=== PATIENT | male | born 1980 | race Two or more races ===

== ENCOUNTER 2019-02-10 10:20 | Emergency (ER) | payer SELFPAY ==
[~2019-02-10] VITALS: Ht 170.2 cm; Wt 117.9 kg
[~2019-02-10 10:20] MED LIST: LISI-334 PO; METF500T16 PO
[2019-02-10] MEDS ORDERED: fentaNYL PF VIAL 100 MCG/2 ML VIAL IV ONE (10:45)
--- NOTE | 2019-02-10 11:11 | RAD ---
Examination: KNEE LEFT 3V History: Pain. Possible sepsis. Comparison/Correlation: None Findings: Total 3 images of the left knee were obtained. Joint spaces are unremarkable. No fracture or bony destruction. No definite joint effusion. Bony mineralization is adequate. No degenerative change. Impression: Normal left knee x-ray exam. Electronically signed by: Ahmet Cee MD (02/10/2019 11:08 AM) [facility]
[2019-02-10 11:28] LABS: BASO # 0.1 x10^3/uL (0.0-0.2); BASO % 1 % (0-3); EOS # 0.1 x10^3/uL (0.0-0.7); EOS % 1 % (0-3); HEMATOCRIT 39.8 % (39.0-53.0); HEMOGLOBIN 13.7 g/dL (13.0-17.5); LYMPH # 2.5 x10^3/uL (1.0-4.8); LYMPH % 33 % (24-48); MEAN CORPUSCULAR HEMOGLOBIN 30 pg (25-35); MEAN CORPUSCULAR HGB CONC 34 g/dL (31-37); MEAN CORPUSCULAR VOLUME 88 fL (79-100); MONO # 0.4 x10^3/uL (0.0-1.1); MONO % 6 % (0-9); NEUT # 4.5 x10^3/uL (1.8-7.7); NEUT % 59 % (31-73); PLATELET COUNT 247 x10^3/uL (140-400); RED BLOOD COUNT 4.51 x10^6/uL (4.30-5.70); WHITE BLOOD COUNT 7.6 x10^3/uL (4.0-11.0)
[2019-02-10 11:40] LABS: CALCIUM 8.8 mg/dL (8.5-10.1); CREATININE 0.7 mg/dL (0.7-1.3); GFR 124.9; POTASSIUM 3.8 mmol/L (3.5-5.1)
[2019-02-10 11:46] LABS: ALBUMIN 3.5 g/dL (3.4-5.0); ALBUMIN/GLOBULIN RATIO 0.9 (1.0-1.7); C-REACTIVE PROTEIN 23.1 mg/L (0-3.3); TOTAL BILIRUBIN 0.5 mg/dL (0.2-1.0); TOTAL PROTEIN 7.5 g/dL (6.4-8.2)
--- NOTE | 2019-02-10 12:08 | PHYS DOC ---
Past Medical History Past Medical History: Diabetes-Type II, High Cholesterol, Hypertension Additional Past Medical Histor: kidney stone Past Surgical History: Other Additional Past Surgical Histo: lithotripsy Alcohol Use: Occasionally Drug Use: None Adult General Chief Complaint Chief Complaint: LOWER EXT PAIN HPI HPI Patient is a 38 year old male who presents with complaining of left knee pain. Patient states he scratched his left lower leg 5 days ago and since then has had pain in his knee without having direct injury. Patient states he is not able to bend his knee and complaining of edema and erythema of the lower part of knee. Patient's states his knee was warm. Patient denies fever and chills, nausea and vomiting, focal neuro deficit. Patient has history of diabetes and hypertension but doesn't take medication for the last 3 years because of lack of insurance. Review of Systems Review of Systems Constitutional: Denies fever or chills [] Eyes: Denies change in visual acuity, redness, or eye pain [] HENT: Denies nasal congestion or sore throat [] Respiratory: Denies cough or shortness of breath [] Cardiovascular: No additional information not addressed in HPI [] GI: Denies abdominal pain, nausea, vomiting, bloody stools or diarrhea [] : Denies dysuria or hematuria [] Musculoskeletal: Denies back pain, reports joint pain [] Integument: Denies rash or skin lesions [] Neurologic: Denies headache, focal weakness or sensory changes [] Endocrine: Denies polyuria or polydipsia [] All other systems were reviewed and found to be within normal limits, except as documented in this note. Current Medications Current Medications Current Medications Medications (Trade) Dose Ordered Sig/Rachele Start Time Stop Time Status Last Admin Dose Admin Cefazolin Sodium 50 ml @ 100 mls/hr 1X ONCE 02/10/19 12:30 02/10/19 12:59 DC 02/10/19 12:36 100 MLS/HR Fentanyl Citrate (Fentanyl 2ml Vial) 50 mcg 1X ONCE 02/10/19 10:45 02/10/19 10:46 DC 02/10/19 11:29 50 MCG Vancomycin HCl 250 ml @ 250 mls/hr 1X ONCE 02/10/19 12:30 02/10/19 13:29 DC 02/10/19 13:14 250 MLS/HR Allergies Allergies Allergies Coded Allergies Type Severity Reaction Last Updated Verified No Known Drug Allergies 2/21/14 No Physical Exam Physical Exam Constitutional: Well developed, well nourished, mild distress, non-toxic appearance. [] HENT: Normocephalic, atraumatic. Eyes: PERRLA, EOMI, conjunctiva normal, no discharge. [] Neck: Normal range of motion, no tenderness, supple, no stridor. [] Cardiovascular:Heart rate regular rhythm, no murmur [] Lungs & Thorax: Bilateral breath sounds clear to auscultation [] Extremities: Left knee with mild edema, tenderness and mild edema in tibial tuberosity area with painful range of motion. Small area of healed old abrasion in the lower part of left leg without sign of infection. Neurologic: Alert and oriented X 3, no focal deficits noted. [] Psychologic: Affect normal, judgement normal, mood normal. [] Current Patient Data Vital Signs Vital Signs Date Time Temp Pulse Resp B/P (MAP) Pulse Ox O2 Delivery O2 Flow Rate FiO2 02/10/19 14:00 74 14 163/98 (119) 95 Room Air 02/10/19 10:25 97.5 97.5 Lab Values Laboratory Tests Test 02/10/19 11:15 White Blood Count 7.6 x10^3/uL (4.0-11.0) Red Blood Count 4.51 x10^6/uL (4.30-5.70) Hemoglobin 13.7 g/dL (13.0-17.5) Hematocrit 39.8 % (39.0-53.0) Mean Corpuscular Volume 88 fL (79-100) Mean Corpuscular Hemoglobin 30 pg (25-35) Mean Corpuscular Hemoglobin Concent 34 g/dL (31-37) Red Cell Distribution Width 13.0 % (11.5-14.5) Platelet Count 247 x10^3/uL (140-400) Neutrophils (%) (Auto) 59 % (31-73) Lymphocytes (%) (Auto) 33 % (24-48) Monocytes (%) (Auto) 6 % (0-9) Eosinophils (%) (Auto) 1 % (0-3) Basophils (%) (Auto) 1 % (0-3) Neutrophils # (Auto) 4.5 x10^3/uL (1.8-7.7) Lymphocytes # (Auto) 2.5 x10^3/uL (1.0-4.8) Monocytes # (Auto) 0.4 x10^3/uL (0.0-1.1) Eosinophils # (Auto) 0.1 x10^3/uL (0.0-0.7) Basophils # (Auto) 0.1 x10^3/uL (0.0-0.2) Erythrocyte Sedimentation Rate 25 (0-15) H Sodium Level 141 mmol/L (136-145) Potassium Level 3.8 mmol/L (3.5-5.1) Chloride Level 105 mmol/L (98-107) Carbon Dioxide Level 27 mmol/L (21-32) Anion Gap 9 (6-14) Blood Urea Nitrogen 20 mg/dL (8-26) Creatinine 0.7 mg/dL (0.7-1.3) Estimated GFR (Cockcroft-Gault) 124.9 BUN/Creatinine Ratio 29 (6-20) H Glucose Level 164 mg/dL (70-99) H Lactic Acid Level 1.5 mmol/L (0.4-2.0) Calcium Level 8.8 mg/dL (8.5-10.1) Total Bilirubin 0.5 mg/dL (0.2-1.0) Aspartate Amino Transferase (AST) 23 U/L (15-37) Alanine Aminotransferase (ALT) 38 U/L (16-63) Alkaline Phosphatase 97 U/L (46-116) C-Reactive Protein, Quantitative 23.1 mg/L (0-3.3) H Total Protein 7.5 g/dL (6.4-8.2) Albumin 3.5 g/dL (3.4-5.0) Albumin/Globulin Ratio 0.9 (1.0-1.7) L Laboratory Tests 02/10/19 11:15 Laboratory Tests 02/10/19 11:15 EKG EKG [] Radiology/Procedures Radiology/Procedures [][facility] [address] [place], [place] [id number] IMAGING REPORT Signed PATIENT: MIKE PINEDAUNT: [id number] : 1980 LOCATION: ER AGE: 38 SEX: M EXAM STATUS: REG ER ORD. PHYSICIAN: ROSHAN MARTIN MD REASON: left knee pain, possible septic joint PROCEDURE: KNEE LEFT 3V Examination: KNEE LEFT 3V History: Pain. Possible sepsis. Comparison/Correlation: None Findings: Total 3 images of the left knee were obtained. Joint spaces are unremarkable. No fracture or bony destruction. No definite joint effusion. Bony mineralization is adequate. No degenerative change. Impression: Normal left knee x-ray exam. Electronically signed by: Ahmet Cruz MD (02/10/2019 11:08 AM) [facility] DICTATED and SIGNED BY: AHMET CRUZ MD DATE: 02/10/19 1105 Course & Med Decision Making Course & Med Decision Making Pertinent Labs and Imaging studies reviewed. (See chart for details) Evaluation of patient in ER showed 38-year-old male patient with complaining of left knee pain and swelling without direct injury. Patient had limited range of motion of left knee. Patient had negative workup for septic joint and felt better with treatment of fentanyl and IV antibiotic in ER. Bradly wrap was applied and patient was advised to follow-up with his primary care physician. Patient has history of diabetes and hypertension without taking medication and prescri ption for lisinopril and metformin was given. Dragon Disclaimer Dragon Disclaimer This electronic medical record was generated, in whole or in part, using a voice recognition dictation system. Departure Departure Impression: Primary Impression: Cellulitis of right knee Additional Impressions: Noncompliance with diabetes treatment Uncontrolled hypertension Disposition: HOME, SELF-CARE (at 1256) Condition: IMPROVED Referrals: NO PCP (PCP) HEATHER RAPHAEL MD Patient Instructions: 1800 Calorie Diet for Diabetes Meal Planning, Cellulitis, Diabetes Meal Planning Guide, Diabetes and [facility], Form - Blood Pressure Record Sheet, How to Take Your Blood Pressure, [id number], Managing Your High Blood Pressure Additional Instructions: Drink plenty of liquids Follow-up with your primary care physician in 3-5 days Return to ER if not getting better Scripts Hydrocodone/Apap 5-325 (NORCO 5-325 TABLET) 1 Each Tablet 1 TAB PO PRN Q6HRS PRN for PAIN, #14 TAB 0 Refills Prov: ROSHAN MARTIN MD 02/10/19 Metformin Hcl (METFORMIN HCL) 500 Mg Tablet 500 MG PO BIDWMEALS for ANTI-DIABETIC, #60 TAB 0 Refills Prov: ROSHAN MARTIN MD 02/10/19 Lisinopril (LISINOPRIL) 10 Mg Tablet 1 TAB PO DAILY, #30 TAB 0 Refills Prov: ROSHAN MARTIN MD 02/10/19 Cephalexin (KEFLEX) 500 Mg Capsule 2 CAP PO Q12HR, #40 CAP Prov: ROSHAN MARTIN MD 02/10/19 Problem Qualifiers ROSHAN MARTIN MD Feb 10, 2019 12:08
[2019-02-10] MEDS ORDERED: VANCOMYCIN 1GM IVPB FOR OMNI 250 ML IV ONE (12:30)
[2019-02-10] MEDS ORDERED: METF500T16 PO (12:59)
[2019-02-10] MEDS ORDERED: CEPH-264 PO (12:59)
[2019-02-10] MEDS ORDERED: LISI10TA2 PO (12:59)
[2019-02-10] MEDS ORDERED: HYDR-3164 PO (13:02)
[2019-02-10 14:00] VITALS: BP 163/98
== END 2019-02-10 14:23 | disposition home or self-care (01) ==
LOC: ER 10:20
DX: L03.116 Cellulitis of left lower limb (principal); Z91.19 Patient's noncompliance with other medical treatment and regimen; I10 Essential (primary) hypertension; E11.9 Type 2 diabetes mellitus without complications; E78.00 Pure hypercholesterolemia, unspecified; Z87.442 Personal history of urinary calculi
CPT/HCPCS: 36415; 73562; 80053; 83605; 85025; 85651; 86140; 87040; 96365; 96367; 96375; 99285; J0690; J3010; J3370

== ENCOUNTER 2019-08-27 13:37 | Emergency (ER) | payer SELFPAY ==
[~2019-08-27] VITALS: Ht 177.8 cm; Wt 81.8 kg
[~2019-08-27 13:37] MED LIST changes: +CEPH-264 PO; +HYDR-3164 PO; +LISI10TA2 PO
[2019-08-27] MEDS ORDERED: ASPIRIN 325 MG TABLET PO ONE (14:15)
[2019-08-27] MEDS ORDERED: MORPHINE SULFATE 4 MG/ML VIAL. IV/SQ PRN (14:15)
[2019-08-27 14:25] LABS: BASO # 0.1 x10^3/uL (0.0-0.2); BASO % 1 % (0-3); EOS # 0.1 x10^3/uL (0.0-0.7); EOS % 1 % (0-3); HEMATOCRIT 41.1 % (39.0-53.0); HEMOGLOBIN 14.3 g/dL (13.0-17.5); LYMPH # 2.7 x10^3/uL (1.0-4.8); LYMPH % 27 % (24-48); MEAN CORPUSCULAR HEMOGLOBIN 31 pg (25-35); MEAN CORPUSCULAR HGB CONC 35 g/dL (31-37); MEAN CORPUSCULAR VOLUME 89 fL (79-100); MONO # 0.4 x10^3/uL (0.0-1.1); MONO % 4 % (0-9); NEUT # 6.7 x10^3/uL (1.8-7.7); NEUT % 67 % (31-73); PLATELET COUNT 270 x10^3/uL (140-400); RED BLOOD COUNT 4.64 x10^6/uL (4.30-5.70); RED CELL DISTRIBUTION WIDTH 12.5 % (11.5-14.5)
[2019-08-27 14:39] LABS: CALCIUM 8.2 mg/dL (8.5-10.1); CREATININE 0.8 mg/dL (0.7-1.3); GFR 107.1; POTASSIUM 3.8 mmol/L (3.5-5.1)
[2019-08-27 14:45] LABS: ALBUMIN 3.6 g/dL (3.4-5.0); MAGNESIUM 1.7 mg/dL (1.8-2.4); TOTAL BILIRUBIN 0.4 mg/dL (0.2-1.0); TOTAL PROTEIN 7.3 g/dL (6.4-8.2)
--- NOTE | 2019-08-27 14:45 | RAD ---
EXAM: PORTABLE CHEST 1V INDICATION: Chest pain. TECHNIQUE: Single view COMPARISON: None FINDINGS: The heart size is normal. The great vessels appear unremarkable. There is no hilar or mediastinal mass. The lungs are clear. There is no pleural effusion or pneumothorax. There are no significant osseous abnormalities. IMPRESSION: No active cardiopulmonary disease. Electronically signed by: Valentin Dodson MD (08/27/2019 2:42 PM) [id number]
--- NOTE | 2019-08-27 15:47 | EKG ---
[facility] [address] [place] [address] Test Date: 2019-08-27 Test Time: 13:48:09 Pat Name: ENIO PINEDA Department: Room: Gender: Instrument And Control Technician: : 1980 Requested By: AIMEE SILVERMAN Order Number: [id number] Reading MD: Measurements Intervals [place] Rate: 79 P: 28 OK: 174 QRS: -12 QRSD: 94 T: -7 QT: 348 QTc: 400 Interpretive Statements SINUS RHYTHM LEFTWARD AXIS OTHERWISE NORMAL ECG RI6.01 No previous ECG available for comparison
--- NOTE | 2019-08-27 17:14 | PHYS DOC ---
Past Medical History Past Medical History: Diabetes-Type II, High Cholesterol, Hypertension, Kidney Stone Additional Past Medical Histor: kidney stone (AIMEE SILVERMAN VALENTIN) Past Surgical History: Other Additional Past Surgical Histo: lithotripsy (HERRERAAIMEE HANSON) Smoking Status: Current Every Day Smoker Additional Information: 0.25 PPD Alcohol Use: Occasionally Drug Use: None (HERRERAAIMEE HANSON) Adult General Chief Complaint Chief Complaint: CHEST PAIN HPI HPI Patient is a 38 year old male with history of diabetes type 2, hypertension, high cholesterol who presents to the ED today complaining of 10 out of 10 left- sided chest pain for 2 days. Patient reports symptoms are worse on palpation of his left chest. Patient states he has had a slight cough, denies any fever. Denies any shortness of breath. (HERRERAAIMEE APRN) Review of Systems Review of Systems Constitutional: Denies fever or chills [] Eyes: Denies change in visual acuity, redness, or eye pain [] HENT: Denies nasal congestion or sore throat [] Respiratory: Denies cough or shortness of breath [] Cardiovascular: Reports left-sided chest pain GI: Denies abdominal pain, nausea, vomiting, bloody stools or diarrhea [] : Denies dysuria or hematuria [] Musculoskeletal: Denies back pain or joint pain [] Integument: Denies rash or skin lesions [] Neurologic: Denies headache, focal weakness or sensory changes [] All other systems were reviewed and found to be within normal limits, except as documented in this note. (CUATEAIMEE Sanders APRN) Current Medications Current Medications Current Medications Medications (Trade) Dose Ordered Sig/Rachele Start Time Stop Time Status Last Admin Dose Admin Aspirin (Ricki Aspirin) 325 mg 1X ONCE 08/27/19 14:15 08/27/19 14:20 DC 08/27/19 14:32 325 MG Morphine Sulfate (Morphine Sulfate) 4 mg PRN Q15MIN PRN 08/27/19 14:15 08/27/19 17:40 DC (HUNTERJOHN E DO) Allergies Allergies Allergies Coded Allergies Type Severity Reaction Last Updated Verified No Known Drug Allergies 07/20/13 No (HUNTERJOHN E DO) Physical Exam Physical Exam Constitutional: Well developed, well nourished, no acute distress, non-toxic appearance. [] HENT: Normocephalic, atraumatic, bilateral external ears normal, oropharynx moist, no oral exudates, nose normal. [] Eyes: PERRLA, EOMI, conjunctiva normal, no discharge. [] Neck: Normal range of motion, no tenderness, supple, no stridor. [] Cardiovascular:Heart rate regular rhythm, no murmur [] Lungs & Thorax: Bilateral breath sounds clear to auscultation [] Abdomen: Bowel sounds normal, soft, no tenderness, no masses, no pulsatile masses. [] Skin: Warm, dry, no erythema, no rash. [] Back: No tenderness, no CVA tenderness. [] Extremities: No tenderness, no cyanosis, no clubbing, ROM intact, no edema. [] Neurologic: Alert and oriented X 3, normal motor function, normal sensory function, no focal deficits noted. [] Psychologic: Affect normal, judgement normal, mood normal. [] (AIMEE SILVERMAN APRN) Current Patient Data Vital Signs Vital Signs Date Time Temp Pulse Resp B/P (MAP) Pulse Ox O2 Delivery O2 Flow Rate FiO2 08/27/19 17:27 70 19 195/109 (137) 94 Room Air 08/27/19 13:54 97.9 97.9 ([facility] E DO) Lab Values Laboratory Tests Test 08/27/19 13:54 08/27/19 17:15 White Blood Count 10.0 x10^3/uL (4.0-11.0) Red Blood Count 4.64 x10^6/uL (4.30-5.70) Hemoglobin 14.3 g/dL (13.0-17.5) Hematocrit 41.1 % (39.0-53.0) Mean Corpuscular Volume 89 fL (79-100) Mean Corpuscular Hemoglobin 31 pg (25-35) Mean Corpuscular Hemoglobin Concent 35 g/dL (31-37) Red Cell Distribution Width 12.5 % (11.5-14.5) Platelet Count 270 x10^3/uL (140-400) Neutrophils (%) (Auto) 67 % (31-73) Lymphocytes (%) (Auto) 27 % (24-48) Monocytes (%) (Auto) 4 % (0-9) Eosinophils (%) (Auto) 1 % (0-3) Basophils (%) (Auto) 1 % (0-3) Neutrophils # (Auto) 6.7 x10^3/uL (1.8-7.7) Lymphocytes # (Auto) 2.7 x10^3/uL (1.0-4.8) Monocytes # (Auto) 0.4 x10^3/uL (0.0-1.1) Eosinophils # (Auto) 0.1 x10^3/uL (0.0-0.7) Basophils # (Auto) 0.1 x10^3/uL (0.0-0.2) Sodium Level 134 mmol/L (136-145) L Potassium Level 3.8 mmol/L (3.5-5.1) Chloride Level 100 mmol/L (98-107) Carbon Dioxide Level 21 mmol/L (21-32) Anion Gap 13 (6-14) Blood Urea Nitrogen 17 mg/dL (8-26) Creatinine 0.8 mg/dL (0.7-1.3) Estimated GFR (Cockcroft-Gault) 107.1 BUN/Creatinine Ratio 21 (6-20) H Glucose Level 197 mg/dL (70-99) H Calcium Level 8.2 mg/dL (8.5-10.1) L Magnesium Level 1.7 mg/dL (1.8-2.4) L Total Bilirubin 0.4 mg/dL (0.2-1.0) Aspartate Amino Transferase (AST) 30 U/L (15-37) Alanine Aminotransferase (ALT) 53 U/L (16-63) Alkaline Phosphatase 122 U/L (46-116) H Creatine Kinase 195 U/L (39-308) Creatine Kinase MB (Mass) 2.1 ng/mL (0.0-3.6) Creatine Kinase MB Relative Index 1.1 % (0-4) Troponin I Quantitative < 0.017 ng/mL (0.000-0.055) SL-Saw-M-Type Natriuretic Peptide 33 pg/mL (0-124) Total Protein 7.3 g/dL (6.4-8.2) Albumin 3.6 g/dL (3.4-5.0) Albumin/Globulin Ratio 1.0 (1.0-1.7) Urine Collection Type Unknown Urine Color Yellow Urine Clarity Clear Urine pH 5.5 (<5.0-8.0) Urine Specific [place] >=1.030 (1.000-1.030) Urine Protein Negative mg/dL (NEG-TRACE) Urine Glucose (UA) >=1000 mg/dL (NEG) Urine Ketones (Stick) Negative mg/dL (NEG) Urine Blood Negative (NEG) Urine Nitrite Negative (NEG) Urine Bilirubin Negative (NEG) Urine Urobilinogen Dipstick 1.0 mg/dL (0.2 mg/dL) Urine Leukocyte Esterase Negative (NEG) Urine RBC Occ /HPF (0-2) Urine WBC 0 /HPF (0-4) Urine Bacteria 0 /HPF (0-FEW) Urine Mucus Marked /LPF Urine Opiates Screen Neg (NEG) Urine Methadone Screen Neg (NEG) Urine Barbiturates Neg (NEG) Urine Phencyclidine Screen Neg (NEG) Urine Amphetamine/Methamphetamine Neg (NEG) Urine Benzodiazepines Screen Neg (NEG) Urine Cocaine Screen Neg (NEG) Urine Cannabinoids Screen Neg (NEG) Urine Ethyl Alcohol Neg (NEG) Laboratory Tests 08/27/19 13:54 Laboratory Tests 08/27/19 13:54 (JOHN HARRISON DO) EKG EKG [address] Harrison sinus rhythm HR 79 no STEMI (AIMEE SILVERMAN APRN) Radiology/Procedures Radiology/Procedures []PROCEDURE: PORTABLE CHEST 1V EXAM: PORTABLE CHEST 1V INDICATION: Chest pain. TECHNIQUE: Single view COMPARISON: None FINDINGS: The heart size is normal. The great vessels appear unremarkable. There is no hilar or mediastinal mass. The lungs are clear. There is no pleural effusion or pneumothorax. There are no significant osseous abnormalities. IMPRESSION: No active cardiopulmonary disease. Electronically signed by: Bertha Dodson MD (08/27/2019 2:42 PM) [id number] DICTATED and SIGNED BY: BERTHA DODSON MD DATE: 08/27/19 144 (AIMEE SILVERMAN APRN) Course & Med Decision Making Course & Med Decision Making Pertinent Labs and Imaging studies reviewed. (See chart for details) This is a 38-year-old male patient presenting to the ED today complaining of left-sided chest pain that is reproducible on palpation. The symptoms for 2 days. EKG is negative, chest x-ray is negative, labs including troponin and negative. Patient was discharged to home. Provided instructions to follow-up with primary care doctor and endodontics dentist. Heart score 2. (AIMEE SILVERMAN APRN) Dragon Disclaimer Dragon Disclaimer This electronic medical record was generated, in whole or in part, using a voice recognition dictation system. (AIMEE SILVERMAN APRN) The HEART Score for CP Pts HEART Score for Chest Pain: HEART Score for Chest Pain Response (Comments) Value History Slighlty/Non-Suspicious 0 ECG Normal 0 Age < 45 0 Risk Factors >3 Risk Factors or Hx CAD 2 Troponin < Normal Limit 0 Total 2 Risk Factors: Risk Factors: DM, Current or recent (<one month) smoker, HTN, HLP, family history of CAD, obesity. Risk Scores: Score 0 - 3: 2.5% MACE over next 6 weeks - Discharge Home Score 4 - 6: 20.3% MACE over next 6 weeks - Admit for Clinical Observation Score 7 - 10: 72.7% MACE over next 6 weeks - Early Invasive Strategies (AIMEE SILVERMAN APRN) Attending Signature I have participated in the care of this patient and I have reviewed and agree with all pertinent clinical information above including history, exam, and recommendations. (JOHN HARRISON DO) Departure Departure Impression: Primary Impression: Chest pain Disposition: HOME, SELF-CARE Condition: STABLE Referrals: AIEME SILVERMAN APRN (PCP) TOD ABRAHAM MD follow up in 1 week Patient Instructions: Chest Pain (Nonspecific), [id number] Additional Instructions: You were evaluated in the emergency room for chest pain, your cardiac workup is negative. Please take the prescribed medication as needed or pain. Follow-up with your own primary care doctor or the endodontics dentist provided in 1-2 weeks. Scripts Cyclobenzaprine Hcl (CYCLOBENZAPRINE HCL) 10 Mg Tablet 1 TAB PO TID, #30 TAB Prov: AIMEE SILVERMAN APRN 08/27/19 Ibuprofen (IBUPROFEN) 600 Mg Tablet 600 MG PO PRN Q6HRS PRN for INFLAMMATION, #30 TAB Prov: AIMEE SILVERMAN APRN 08/27/19 Problem Qualifiers Primary Impression: Chest pain Chest pain type: unspecified Qualified Codes: R07.9 - Chest pain, unspecified AIMEE SILVERMAN APRN Aug 27, 2019 17:14 JOHN HARRISON DO Aug 29, 2019 10:14
[2019-08-27] MEDS ORDERED: CYCL10TA2 PO (17:21)
[2019-08-27] MEDS ORDERED: IBUP-1007 PO (17:21)
[2019-08-27 17:24] LABS: BILIRUBIN,URINE NEGATIVE (NEG); COLOR,URINE YELLOW; NITRITE,URINE NEGATIVE (NEG); PH,URINE 5.5 (<5.0-8.0); PROTEIN,URINE NEGATIVE (NEG-TRACE)
[2019-08-27 17:27] VITALS: BP 195/109
[2019-08-27 17:29] LABS: CLARITY,URINE CLEAR
[2019-08-27 17:30] LABS: BACTERIA,URINE 0 /HPF (0-FEW); RBC,URINE OCC /HPF (0-2); WBC,URINE 0 /HPF (0-4)
[2019-08-27 17:32] LABS: BARBITURATES NEG (NEG); BENZODIAZEPINES NEG (NEG); CANNABINOIDS NEG (NEG); COCAINE NEG (NEG); METHADONE NEG (NEG); OPIATES NEG (NEG); PHENCYCLIDINE NEG (NEG)
[2019-08-27 17:34] LABS: AMPHETAMINE/METHAMPHETAMINE NEG (NEG)
== END 2019-08-27 17:38 | disposition home or self-care (01) ==
LOC: ER 13:37
DX: R07.89 Other chest pain (principal); R05 Cough; E11.9 Type 2 diabetes mellitus without complications; E78.00 Pure hypercholesterolemia, unspecified; I10 Essential (primary) hypertension; F17.200 Nicotine dependence, unspecified, uncomplicated; Z87.442 Personal history of urinary calculi; Z98.890 Other specified postprocedural states
CPT/HCPCS: 36415; 71045; 80053; 80307; 81001; 82553; 83735; 83880; 84484; 85025; 93005; 99285

== ENCOUNTER 2021-08-16 18:07 | Emergency (ER) | payer SELFPAY ==
[~2021-08-16 18:07] MED LIST changes: +CYCL10TA19 PO; +IBUP-1007 PO; -LISI-334 PO; +LISI10TA16 PO; -LISI10TA2 PO; +LISI20TA18 PO
== END 2021-08-16 20:45 | disposition left against medical advice (07) ==
LOC: ER 18:07
DX: R05.9 Cough, unspecified (principal); Z53.21 Procedure and treatment not carried out due to patient leaving prior to being seen by health care provider